=== PATIENT | female | born 1985 | race Caucasian/White ===

== ENCOUNTER 2020-03-22 19:41 | Emergency (ER) | payer OTHER, MEDICAID ==
[~2020-03-22] VITALS: Ht 162.6 cm; Wt 60.8 kg
[~2020-03-22 19:41] MED LIST: AMBIEN 5 MG TABL5 M1 PO; AMOXICILLIN875 MG PO; BACTRIM DS TAB1 EACH PO; BUTALB-APAP-CA1 EACH PO; CIPROFLOXACIN500 M1 PO; DIFLUCAN200 MG PO; GRALISE300 MG PO; HYDROCODON-ACE1 EAC7 PO; HYDROCODONE-AP1 EAC6 PO; IBUPROFEN 800800 M1 PO; IRON325 PO; LEVOTHYROXIN0.025 MG PO; MOTION SICKNESS25 MG PO; NAPROSYN500 MG PO; NORCO 5-325 TA1 EACH PO; PERCOCET 5-3251 EACH PO; PERCOCET 7.5-31 EACH PO; PHENERGAN 25 MG25 M1 PO; PHENTERMINE HCL15 MG PO; PRAZOSIN 1 MG CA1 MG; REXULTI2 MG PO; RIZATRIPTAN10 M1 PO; TOPAMAX 100 MG100 MG PO; VALIUM5 MG PO; VITAMIN D 5050000 I1 PO; ZOFRAN ODT4 MG PO; ZOFRAN4 MG PO
[2020-03-22] MEDS ORDERED: ADDERALL 10 MG10 MG PO (19:55)
[2020-03-22] MEDS ORDERED: AMBIEN 10 MG TA10 MG PO (19:55)
[2020-03-22 20:19] LABS: URINE BLOOD 2+ (Negative); URINE COLOR YELLOW; URINE GLUCOSE-RANDOM NEGATIVE (Negative); URINE KETONES TRACE (Negative); URINE NITRITE-REFLEX NEGATIVE (Negative); URINE PROTEIN TRACE (Negative); URINE SPECIFIC GRAVITY >= 1.030 (1.005-1.030); URINE UROBILINOGEN 0.2 E.U./dl (0.2-1.0)
[2020-03-22 20:20] LABS: ICTOTEST (BILI CONFIRMATORY) Negative (Negative); URINE BILIRUBIN 1+ (Negative); URINE CLARITY CLOUDY; URINE LEUKOCYTES-REFLEX 2+ (Negative)
[2020-03-22 20:28] LABS: ABSOLUTE BASOPHILS 0.1 thou/uL (0.0-0.2); ABSOLUTE EOSINOPHILS 0.1 thou/uL (0.0-0.7); ABSOLUTE LYMPHOCYTES 2.7 thou/uL (0.8-5.3); ABSOLUTE MONOCYTES 0.5 thou/uL (0.0-1.2); ABSOLUTE NEUTROPHILS 6.1 thou/uL (1.6-8.1); EOSINOPHILS 0.8 %; HEMATOCRIT 38.1 % (37.0-47.0); HEMOGLOBIN 12.9 gm/dL (12.0-15.0); LYMPHOCYTES 28.4 %; MCH 31.4 pg (26.0-34.0); MCHC 33.7 g/dL (28.0-37.0); MCV 93.2 fL (80.0-100.0); MONOCYTES 5.3 %; MPV 8.5 fl. (7.2-11.1); NUCLEATED RBCS 0 /100WBC; PLATELET COUNT* 339 thou/uL (150-400); POLYS 64.5 %; RBC 4.09 mil/uL (4.20-5.00); RDW-CV 16.9 % (10.5-14.5); WBC 9.4 thou/uL (4.0-11.0)
[2020-03-22 20:29] LABS: SQUAMOUS >10 Many /LPF (0-3); URINE WBC-REFLEX >25 Many /HPF (0-5)
[2020-03-22 20:30] LABS: BACTERIA-REFLEX >30 Many /HPF (None Seen); CASTS None Seen /LPF (None Seen); CRYSTALS None Seen /LPF (None Seen); URINE RBC 3-10 Few /HPF (0-2)
[2020-03-22 20:34] LABS: CALCIUM 8.8 mg/dL (8.5-10.1); CREATININE 0.7 mg/dL (0.6-1.3); POTASSIUM 3.4 mmol/L (3.5-5.1)
[2020-03-22 20:45] LABS: ALBUMIN 3.9 g/dL (3.4-5.0); TOTAL BILIRUBIN 0.6 mg/dL (<0.1-1.0); TOTAL PROTEIN 7.1 g/dL (6.4-8.2)
[2020-03-22] MEDS ORDERED: AMOXIL 875 MG875 M1 PO (21:35)
[2020-03-22 21:58] VITALS: BP 122/70
== END 2020-03-22 21:58 | disposition home or self-care (01) ==
LOC: M.ERS 19:41
PROVIDERS: Emergency Medicine; Physician Assistant
DX: O23.41 Unspecified infection of urinary tract in pregnancy, first trimester (principal); G43.909 Migraine, unspecified, not intractable, without status migrainosus; E03.9 Hypothyroidism, unspecified; O99.331 Smoking (tobacco) complicating pregnancy, first trimester; Z79.899 Other long term (current) drug therapy; Z88.1 Allergy status to other antibiotic agents; Z3A.00 Weeks of gestation of pregnancy not specified

== ENCOUNTER 2020-07-16 11:36 | Emergency (ER) | payer OTHER, MEDICAID ==
[~2020-07-16] VITALS: Ht 162.6 cm; Wt 65.8 kg
[~2020-07-16 11:36] MED LIST changes: +ADDERALL 10 MG10 MG PO; +AMBIEN 10 MG TA10 MG PO; +AMOXIL 875 MG875 M1 PO
[2020-07-16] MEDS ORDERED: PRENATAL (12:00)
[2020-07-16 12:03] VITALS: BP 118/71
[2020-07-16 12:06] LABS: ABSOLUTE EOSINOPHILS 0.1 thou/uL (0.0-0.7); ABSOLUTE MONOCYTES 0.5 thou/uL (0.0-1.2); ABSOLUTE NEUTROPHILS 6.4 thou/uL (1.6-8.1); BASOPHILS 0.4 %; EOSINOPHILS 0.6 %; HEMATOCRIT 32.1 % (37.0-47.0); HEMOGLOBIN 10.7 gm/dL (12.0-15.0); LYMPHOCYTES 22.4 %; MCH 29.1 pg (26.0-34.0); MCHC 33.4 g/dL (28.0-37.0); MONOCYTES 5.7 %; MPV 8.1 fl. (7.2-11.1); NUCLEATED RBCS 0 /100WBC; PLATELET COUNT* 268 thou/uL (150-400); POLYS 70.9 %; RBC 3.69 mil/uL (4.20-5.00); RDW-CV 14.9 % (10.5-14.5); WBC 9.1 thou/uL (4.0-11.0)
== END 2020-07-16 12:04 | disposition left against medical advice (07) ==
LOC: M.ERS 11:36
PROVIDERS: Family Medicine
DX: O26.892 Other specified pregnancy related conditions, second trimester (principal); R10.9 Unspecified abdominal pain; Z3A.20 20 weeks gestation of pregnancy; Z88.1 Allergy status to other antibiotic agents; Z79.899 Other long term (current) drug therapy; Z90.89 Acquired absence of other organs